=== PATIENT | male | born 1985 | race Caucasian/White ===

== ENCOUNTER 2020-05-10 15:52 | Emergency (ER) | payer BC ==
[2020-05-10] MEDS ORDERED: Sodium Chloride 0.9% 10 ML Syringe FLUSH PRN (16:36)
[2020-05-10] MEDS ORDERED: Aspirin 81 MG Tab.Chew PO ONE (16:36)
--- NOTE | 2020-05-10 16:39 | EDM.PDOC ---
ED HPI GENERAL MEDICAL PROBLEM - General Chief Complaint: Chest Pain Stated Complaint: CHEST PAIN/TINGLING LEFT HAND Time Seen by Provider: 05/10/20 16:24 Source of Information: Reports: Patient History Limitations: Reports: No Limitations - History of Present Illness INITIAL COMMENTS - FREE TEXT/NARRATIVE: 35-year-old male presents to the ED for evaluation of recurrent sharp stabbing precordial chest pain and central chest pain since about 1230 hrs. today. 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 He works out on a regular basis but no weights utilizing chest wall muscles in the last week. He denies cough or sputum production. He had COVID-19 illness in February and felt he had a fairly mild form of the illness. Denies any cough or sputum production. No fever or chills. No known cardiac disease. Patient currently takes no medications. He denies any heartburn and has never needed to use Tums or Rolaids. He had soup and a sandwich for dinner without any issues swallowing. Burping and belching has not relieve the discomfort. Onset: Today, Sudden Onset Date: 05/10/20 Onset Time: 12:30 Duration: Hour(s):, Intermittent, Waxing/Waning Location: Reports: Chest (Left precordial chest). Denies: Radiates to Quality: Reports: Pressure (Mild pressure but) Severity: Mild (certain degree of sharp and stabbing pain.) Improves with: Reports: None Worsens with: Reports: None Context: Denies: Activity, Exercise, Lifting, Sick Contact, Trauma, Other Associated Symptoms: Reports: Chest Pain. Denies: No Other Symptoms (See history of present illness), Confusion, Cough, cough w sputum, Diaphoresis, Fever/Chills, Headaches, Loss of Appetite, Malaise, Nausea/Vomiting, Rash, Seizure, Shortness of Breath, Syncope, Weakness Treatments ICE SKATER: Reports: Other (see below) Chest Pain Score (Numeric/FACES): 1 - Related Data Allergies Allergy/AdvReac Type Severity Reaction Status Date / Time banana Allergy Airway Verified 05/10/20 16:29 Tightness Past Medical History Respiratory History: Reports: Asthma (Mild asthma symptoms as a child.) Social & Family History - Tobacco Use Tobacco Use Status *Q: Never Tobacco User - Alcohol Use Alcohol Use History: Yes Days Per Week of Alcohol Use: 3 - Living Situation & Occupation Living situation: Reports: Single Occupation: Employed ED ROS GENERAL - Review of Systems Review Of Systems: See Below Constitutional: Denies: Fever, Chills, Malaise, Weakness, Fatigue, Decreased Appetite, Weight Loss HEENT: Reports: No Symptoms Respiratory: Denies: Shortness of Breath, Wheezing, Pleuritic Chest Pain, Cough, Sputum Cardiovascular: Reports: Chest Pain, Other (Blood pressure is elevated at the time of initial visit to the ED at 149 104. However it came down to 140-102 after 20 minutes). Denies: Blood Pressure Problem (See history of present illness), Claudication, Dyspnea on Exertion, Edema, Lightheadedness, Orthopnea, Palpitations Endocrine: Reports: No Symptoms GI/Abdominal: Reports: No Symptoms : Reports: No Symptoms Musculoskeletal: Reports: No Symptoms Skin: Reports: No Symptoms Neurological: Reports: No Symptoms Psychiatric: Reports: No Symptoms Hematologic/Lymphatic: Reports: No Symptoms Immunologic: Reports: No Symptoms ED EXAM, GENERAL - Physical Exam Exam: See Below Exam Limited By: No Limitations General Appearance: Alert, WD/WN, Anxious, Mild Distress, Other (Temperature is 36.3. Pulse 94 and sinus respiratory is 18 with O2 sats of 99% room air BP initially is elevated at 149 104.) Eye Exam: Bilateral Eye: Normal Inspection (No scleral icterus or blepharal pallor.), PERRL Throat/Mouth: Normal Inspection, Normal Lips, Normal Teeth, Normal Oropharynx Head: Atraumatic, Normocephalic Neck: Normal Inspection, Supple, Non-Tender, Full Range of Motion. No: Lymphadenopathy (L), Lymphadenopathy (R) Respiratory/Chest: No Respiratory Distress, Lungs Clear, Normal Breath Sounds, Other (Could not elicit any chest wall tenderness on palpation of the anterior chest wall midclavicular line.) Cardiovascular: Normal Peripheral Pulses, Regular Rate, Rhythm, No Edema, No Gallop, No Murmur, No Rub Peripheral Pulses: 3+: Carotid (L), Carotid (R), Posterior Tibial (L), Posterior Tibial (R), Dorsalis Pedis (L), Dorsalis Pedis (R) GI/Abdominal: Normal Bowel Sounds, Soft, Non-Tender, No Organomegaly, No Mass, Pelvis Stable, Other. No: Guarding, Rigid, Rebound Back Exam: Normal Inspection (No evidence of gallbladder related illness.), Full Range of Motion. No: CVA Tenderness (L), CVA Tenderness (R) Extremities: Normal Inspection, Normal Range of Motion, Non-Tender, No Pedal Edema Neurological: Alert, Oriented, CN II-XII Intact, Normal Cognition Psychiatric: Normal Mood, Anxious Skin Exam: Warm, Dry (Not anxious.), Intact, Normal Color, No Rash #1 Interpretation EKG Date: 05/10/20 Time: 16:13 Rhythm: NSR Rate (Beats/Min): 76 [place]: LAD-Left [place] Deviation (Left axis deviation of -20 degrees) P-Wave: Present QRS: Normal ST-T: Other (Minimal ST segment depression appreciated V3 to V6 due to repolarization abnormality.) QT: Normal EKG Interpretation Comments: Borderline ECG Course - Vital Signs Last Recorded V/S: Last Vital Signs Temp 36.3 C 05/10/20 16:17 Pulse 94 05/10/20 16:17 Resp 18 05/10/20 16:17 BP 149/104 H 05/10/20 16:17 Pulse Ox 99 05/10/20 16:17 - Orders/Labs/Meds Orders: Active Orders 24 hr Category Date Time Status EKG Documentation Completion [RC] STAT Care 05/10/20 16:35 Active Peripheral IV Care [RC] . DIRECTED Care 05/10/20 16:36 Active Chest 1V Frontal [CR] Stat Exams 05/10/20 16:35 Taken Sodium Chloride 0.9% [Saline Flush] Med 05/10/20 16:36 Active 10 ml FLUSH ASDIRECTED PRN Peripheral IV Insertion Adult [OM.PC] Stat Oth 05/10/20 16:35 Ordered Medication Orders Sodium Chloride (Saline Flush) 10 ml FLUSH ASDIRECTED PRN PRN Reason: Keep Vein Open Last Admin: 05/10/20 16:48 Dose: 10 ml Documented by: ANURAG Labs: Laboratory Tests 05/10/20 05/10/20 05/10/20 Range/Units 16:34 16:34 16:34 WBC 7.17 (4.23-9.07) K/mm3 RBC 5.34 (4.63-6.08) M/mm3 Hgb 14.4 (13.7-17.5) gm/dl Hct 44.8 (40.1-51.0) % MCV 83.9 (79.0-92.2) fl MCH 27.0 (25.7-32.2) pg MCHC 32.1 L (32.2-35.5) g/dl RDW Std Deviation 41.1 (35.1-43.9) fL Plt Count 255 (163-337) K/mm3 MPV 10.7 (9.4-12.3) fl Neut % (Auto) 42.4 (34.0-67.9) % Lymph % (Auto) 44.9 (21.8-53.1) % [place] % (Auto) 9.5 (5.3-12.2) % Eos % (Auto) 2.5 (0.8-7.0) Baso % (Auto) 0.6 (0.1-1.2) % Neut # (Auto) 3.04 (1.78-5.38) K/mm3 Lymph # (Auto) 3.22 (1.32-3.57) K/mm3 [place] # (Auto) 0.68 (0.30-0.82) K/mm3 Eos # (Auto) 0.18 (0.04-0.54) K/mm3 Baso # (Auto) 0.04 (0.01-0.08) K/mm3 PT 10.2 (9.7-12.0) SECONDS INR 0.95 APTT 26.6 (21.7-31.4) SECONDS D-Dimer, Quantitative < 0.19 L (0.19-0.50) mg/L Sodium 139 (136-145) mEq/L Potassium 3.8 (3.5-5.1) mEq/L Chloride 103 (98-107) mEq/L Carbon Dioxide 28 (21-32) mEq/L Anion Gap 11.8 (5-15) BUN 13 (7-18) mg/dL Creatinine 1.2 (0.7-1.3) mg/dL Est Cr Clr Drug Dosing 90.41 mL/min Estimated GFR (MDRD) > 60 (>60) mL/min BUN/Creatinine Ratio 10.8 L (14-18) Glucose 96 (74-106) mg/dL Calcium 9.8 (8.5-10.1) mg/dL Magnesium 2.3 (1.8-2.4) mg/dl Total Bilirubin 0.4 (0.2-1.0) mg/dL AST 20 (15-37) U/L ALT 36 (16-63) U/L Alkaline Phosphatase 53 (46-116) U/L CK-MB (CK-2) 0.5 (0-3.6) ng/ml Troponin I < 0.017 (0.00-0.056) ng/mL C-Reactive Protein < 0.2 (<1.0) mg/dL Total Protein 8.4 H (6.4-8.2) g/dl Albumin 5.1 H (3.4-5.0) g/dl Globulin 3.3 gm/dL Albumin/Globulin Ratio 1.6 (1-2) Meds: Medications Generic Name Dose Route Start Last Admin Trade Name Freq PRN Reason Stop Dose Admin Sodium Chloride 10 ml 05/10/20 16:36 05/10/20 16:48 Saline Flush FLUSH 10 ml ASDIRECTED PRN Administration Keep Vein Open Discontinued Medications Generic Name Dose Route Start Last Admin Trade Name Freq PRN Reason Stop Dose Admin Aspirin 324 mg 05/10/20 16:36 05/10/20 16:47 Aspirin PO 05/10/20 16:37 324 mg ONETIME ONE Administration - Radiology Interpretation Free Text/Narrative:: 35-year-old male presents to the ED with recurrence or intermittent left precordial chest discomfort which is mostly sharp and stabbing. Been occurring off and on since 1230 today. Both his of his parents are in the medical profession and they encouraged him to come to the ED for evaluation. Patient has pretty good insight into being under a great deal of stress as he is a assistant district attorney here in [place] and due to the COVID-19 illness his workload has increased dramatically due to court cases being delayed. He works out on a regular basis and is in good health otherwise. He is a never smoker. He had COVID-19 illness in February of this last year which she reports was a fairly mild form of illness. Lungs are clear. ECG done by triage nurse shows sinus rhythm at 76/min. He does have a left axis deviation of -28 degrees. There is very minimal ST segment depression in leads V4 to V6 which is a reflective of a repolarization abnormality not true ischemia. Plan saline lock. Given 4 baby aspirin chewed. Portable chest x-ray routine labs including cardiac markers to be done. - Re-Assessments/Exams Free Text/Narrative Re-Assessment/Exam: 05/10/20 17:08 one-view portable chest x-ray completed. Cardiac silhouette is normal. Visualized lung rivera are clear with no pneumothorax or pulmonary infiltrate. No pleural effusions. Normal chest x-ray 05/10/20 17:23 Hematology reveals a normal white count at 7.17. The differential shows 42% neutrophils. Reveals 45% lymphocytes suggesting underlying viral infection. Of note he is 3 months post COVID-19 illness. Hemoglobin is 14.4 with hematocrit of 44.8. Platelet count 255,000. PT is 10.2 with an INR of 0.95. PTT is 26.6 and D-dimer is normal at less than 0.19. Chemistry shows a sodium of 139 and potassium of 3.8. Chloride is 103 with a bicarb of 28. Anion gap is 11.8. BUN is 13 with a creatinine of 1.2 and a GFR greater than 60. Glucose is 96. Calcium is 9.8. Magnesium is 2.3 liver function normal CK-MB fraction is 0.5 with a troponin I of less than 0.017. C- reactive protein is less than 0.2. Protein is elevated at 8.4 with an albumin fraction elevated at 5.1 suggesting mild hemoconcentration. I have discussed the findings with the patient. His blood pressure remains elevated mostly in the 142 range over 98 100. I have asked him to purchase a blood pressure cuff and check his blood pressure periodically before deciding that he needs antihypertensive medication due to the huge amount of stress that he is under. His current chest pain syndrome I chalked up to being under duress. Departure - Departure Time of Disposition: 17:44 Disposition: Home, Self-Care 01 Reason for Transfer *Q: Other Condition: Fair Clinical Impression: Non-cardiac chest pain, Anxiety, generalized, Elevated blood pressure reading Instructions: Nonspecific Chest Pain, Adult Referrals: PCP,Not In Area [Primary Care Provider] - Forms: ED Department Discharge Additional Instructions: Evaluation in the emergency room tonight in regards to development of diffuse central and left precordial chest discomfort which was coming and going or intermittent since 1230 hrs. today. There was a strong sharp stabbing component to the pain which would be atypical for any heart related illness. Chest x-ray proved to be completely normal. Lab tests also proved to be completely negative for any heart related illness. Also no evidence of blood clot in the lung. No signs of elevated inflammatory markers related to COVID-19 illness. I agree with you that chest pain is most likely due to work overload creating generalized anxiety and duress. Continue to work out and being active is possible is a good thing. Suggest making sure you get adequate sleep ideally 6 to 7 hours a night. Your blood pressure remained elevated during your stay in the emergency department. At the time of discharge it was 142/98. Ideally we would like your blood pressure to be 135 or less on the top number and under 85 on the bottom number for your age. I would suggest purchasing a blood pressure machine and checking her blood pressure randomly like first thing in the morning end of the day and then certainly on days where you are not in the workplace. If your blood pressure remains persistently elevated above 135/85 either on the top or bottom you will need a blood pressure medication. Follow-up with personal care physician if any further problems occur/continue. Sepsis Event Note (ED) - Evaluation Sepsis Screening Result: No Definite Risk - Focused Exam Vital Signs: Vital Signs Temp Pulse Resp BP Pulse Ox 05/10/20 16:17 36.3 C 94 18 149/104 H 99 - My Orders Last 24 Hours: My Active Orders 05/10/20 16:35 EKG Documentation Completion [RC] STAT Chest 1V Frontal [CR] Stat Peripheral IV Insertion Adult [OM.PC] Stat 05/10/20 16:36 Peripheral IV Care [RC] . DIRECTED Sodium Chloride 0.9% [Saline Flush] 10 ml FLUSH ASDIRECTED PRN - Assessment/Plan Last 24 Hours: My Active Orders 05/10/20 16:35 EKG Documentation Completion [RC] STAT Chest 1V Frontal [CR] Stat Peripheral IV Insertion Adult [OM.PC] Stat 05/10/20 16:36 Peripheral IV Care [RC] . DIRECTED Sodium Chloride 0.9% [Saline Flush] 10 ml FLUSH ASDIRECTED PRN
--- NOTE | 2020-05-11 08:25 | CR ---
Chest: Portable view of the chest was obtained. Comparison: No prior chest imaging is available. Heart size and mediastinum are normal. Lungs are clear with no acute parenchymal change. Bony structures are grossly intact. Impression: 1. Nothing acute is seen on portable chest x-ray. Diagnostic code #1
== END 2020-05-10 17:53 | disposition home or self-care (01) ==
LOC: JD.ED 15:52
DX: R07.89 Other chest pain (principal); F41.1 Generalized anxiety disorder; R03.0 Elevated blood-pressure reading, without diagnosis of hypertension; Z86.16 Personal history of COVID-19; Z91.018 Allergy to other foods
CPT/HCPCS: 36415; 71045; 80053; 82553; 83735; 84484; 85025; 85379; 85610; 85730; 86140; 93005; 99285; A9270; 93010; 99284